=== PATIENT | female | born 1975 | race African-American/Black ===

== ENCOUNTER 2018-07-22 11:36 | Inpatient (IN) | payer BC ==
[2018-07-21 14:06] VITALS: BMI 24.2
[2018-07-22] MEDS ORDERED: MIDAZOLAM HCL 2 MG/2 ML SINGLE DOSE VIAL ONE ×2 (16:43→17:10)
[2018-07-22] MEDS ORDERED: PROPOFOL 20 ML ONE ×2 (16:43→17:08)
[2018-07-22] MEDS ORDERED: ROCURONIUM BROMIDE 50 MG/5 ML VIAL ONE (16:43)
[2018-07-22] MEDS ORDERED: fentaNYL CITRATE 250 MCG/5 ML VIAL ONE (16:43)
[2018-07-22] MEDS ORDERED: ceFAZolin SODIUM 1 GM VIAL IVPB ONE (17:00)
[2018-07-22] MEDS ORDERED: BUPIVACAINE HCL/PF (5 MG/ML) 30 ML VIAL IJ ONE ×2 (17:18→18:22)
[2018-07-22] MEDS ORDERED: DESFLURANE GAS 240 ML BOTTLE IH ONE (17:35)
[2018-07-22] MEDS ORDERED: NEOSTIGMINE METHYLSULFATE 0.5 MG/ML - 10 ML MDV ONE (18:06)
[2018-07-22] MEDS ORDERED: GLYCOPYRROLATE 0.2 MG/1 ML VIAL ONE ×2 (18:06)
[2018-07-22] MEDS ORDERED: KETOROLAC TROMETHAMINE 30 MG/1 ML VIAL ONE (18:15)
[2018-07-22] MEDS ORDERED: PROMETHAZINE HCL 25 MG/1 ML VIAL IVPUSH PRN (18:44)
[2018-07-22] MEDS ORDERED: ONDANSETRON 4 MG/2 ML VIAL IVPUSH PRN ×2 (18:44→18:49)
--- NOTE | 2018-07-22 18:44 | OP ---
Operative Note - Note: Operative Date: 07/22/18 Pre-Operative Diagnosis: Cholelithiasis, and incarcerated umbilical hernia. Operation: Laparoscopic cholecystectomy, lysis of adhesions,. and primary repair of incarcerated umbilical hernia. Findings: Gallbladder distended with two large stones in the gallbladder . Gallbladder surrounded by adhesions of omentum and stomach. Stomach pulled towards the infundibulum of the gallbladder , lysed. Falciform liganment also pulled towards the gallbladder. Small superficial laceration at the attachment of the falciform ligament controlled. Umbilical hernia of about 2 cm. diameter , repaired primarily, with 2 o prolenee. Post-Operative Diagnosis: Same as Pre-op (Calculus of gallbladder with chronic cholecystitis, adhesions of stomach and omentum to the gallbladder. Umbilical hernia with incarceration of omentuma nad fat.) Surgeon: Martín Mendoza Anesthesiologist/GUMMED TAPE PRESS OPERATOR: Trevor Baker Specimens Removed: Gallbladder , hernial sac Estimated Blood Loss (mls): 25 Operative Report Dictated: Yes
--- NOTE | 2018-07-22 18:46 | SURG ---
Surgery Kitchen Runner Note Kitchen Runner: Trevor Baker PA-C (Suzy) Date of Service: 07/22/18 Diagnosis: Cholelithiasis, and incarcerated umbilical hernia. Procedure: Laparoscopic cholecystectomy, lysis of adhesions,. and primary repair of incarcerated umbilical hernia. I was present for the entirety of the operative procedure. For further detail, please refer to operative report.
[2018-07-22] MEDS ORDERED: oxyCODONE HCL 5 MG TABLET PO PRN (18:48)
[2018-07-22] MEDS: oxyCODONE HCL 5 MG TABLET PO PRN (20:44)
[2018-07-23] MEDS: oxyCODONE HCL 5 MG TABLET PO PRN ×3 (02:14→20:05)
--- NOTE | 2018-07-23 07:39 | OP ---
DATE OF OPERATION: 07/22/2018 PREOPERATIVE DIAGNOSIS: Cholelithiasis with chronic cholecystitis and incarcerated umbilical hernia POSTOPERATIVE DIAGNOSIS: Calculi of the gallbladder with chronic cholecystitis and incarcerated umbilical hernia and postoperative adhesions of stomach and omentum around the gallbladder as well as the falciform ligament with incarceration of omentum and fat. OPERATIVE PROCEDURE: Laparoscopic cholecystectomy, lysis of adhesions, primary repair of incarcerated umbilical hernia. SURGEON: Jame Mendoza MD INTEGRATION AIDE: MORGAN Leal ANESTHESIA: General anesthesia. OPERATIVE DESCRIPTION: This 43-year-old woman has pain at the umbilicus perceived with a fairly large incarcerated umbilical hernia. She also was found to have another small ventral hernia above that. Seen fairly, she also had 2 large stones in the gallbladder. She was brought in for laparoscopic cholecystectomy and repair of incarcerated umbilical hernia. Consent was obtained. Risks, benefits, and complications were discussed with the patient. Patient was brought to the operating room. General anesthesia was administered. The abdomen painted and draped. She was given a gram of Ancef. Time-out was called. Incision was made in the infraumbilical portion of the umbilicus. It was was deepened through the skin and subcutaneous tissue. The hernia was identified, it was admitted more than 1-1/2 fingers in diameter. The skin was placed and retracted above the umbilical hernia defect circumferentially. The edges were defined and defect was identified. There was omentum incarcerated through the fat. This was completely excised, and the edges were clean. Two stay sutures of 2-0 Vicryl were obtained, and a 10-12-mm laparoscopic trocar of the Lazaro type was introduced into the abdominal cavity. The abdomen was inflated with carbon dioxide at 6L per minute with a maximum intraabdominal pressure of 15 mmHg. A 5-mm camera was introduced into the abdominal cavity. Two 5-mm trocars were inserted in the right upper quadrant of the abdomen, one around the midclavicular line, another around the anterior axillary line 2 fingerbreadths below the costal margin. These were visualized with the camera entering the abdominal cavity. A third 5-mm trocar was inserted in the midline in the subxiphoid area. This was introduced to the right of the falciform ligament. This was also visualized with the camera. The gallbladder was then visualized after lifting the right lobe of the liver. The gallbladder was surrounded by omentum, and the stomach , pylorus and duodenum were withdrawn towards the infundibulum and body of the gallbladder. With lysing of the adhesions, the fundus of the gallbladder was visualized. This was grasped with a 5-mm grasper through the lateral 5-mm port site. The gallbladder was then retracted cephalad and laterally. With sharp and blunt dissection using electrocautery, the omental adhesions as well as the stomach adhesions around the gallbladder were carefully withdrawn to visualize the infundibulum of the gallbladder and infundibulum cystic duct junction. Once the whole gallbladder was visualized with sharp and blunt dissection, the cystic duct and cystic artery were visualized circumferentially, and this was divided between clips. The peritoneal reflection on either side of the gallbladder was then incised, the gallbladder dissected out of the gallbladder bed all the way to the fundus of the gallbladder. The cholecystectomy was thus accomplished. There were a lot of adhesions of the gallbladder to the liver bed. Once this was done, it was noted that the falciform ligament was also shortened and adherent. With the mobilization of the right lobe of the liver, there was a small laceration at the entrance of the falciform ligament to the body of the liver. This was controlled with electrocautery. Two Surgicels were then introduced through the umbilicus and placed over the laceration, which was dry. The gallbladder bed was then thoroughly irrigated with normal saline. All fluid return was clear. The gallbladder was then removed by introducing an Endobag through the umbilical port and withdrawing it with 2 large stones in the gallbladder which were more than 2 cm in diameter. The specimen was sent to Pathology. The umbilical hernia defect was then cleaned, and the hernia defect was properly repaired with 2-0 Prolene sutures in a vertical mattress fashion. The umbilical skin was then brought down towards the base of the umbilical defect, and the skin was approximated with buried interrupted 4-0 Biosyn sutures. Marcaine 0.5% was injected into the wound. Estimated blood loss was about 25 mL. Patient remained stable throughout the procedure. Dermabond was applied to close the skin edges, and a sterile dressing was placed over the umbilical repair. Patient was extubated and sent to the recovery room in satisfactory and stable condition. Jovan [id number] MTDD
[2018-07-23] MEDS: DOCUSATE SODIUM 100 MG CAPSULE (FP) PO SCH (09:13)
[2018-07-23 09:58] LABS: BASO % 0.2 % (0-2.0); HEMATOCRIT 31.3 % (32.4-45.2); HEMOGLOBIN 10.4 GM/dL (10.7-15.3); LYMPH % 21.7 % (8-40); MCH 29.3 pg (25.7-33.7); MCHC 33.3 g/dl (32.0-36.0); MEAN PLT VOLUME 8.9 fl (7.5-11.1); MONO % 6.2 % (3.8-10.2); NEUT % 71.9 % (42.8-82.8); PLATELET COUNT 190 K/MM3 (134-434); RBC 3.55 M/mm3 (3.60-5.2); RDW 14.9 % (11.6-15.6); WHITE BLOOD COUNT 9.7 K/mm3 (4.0-10.0)
--- NOTE | 2018-07-23 18:31 | PN ---
Progress Note, Physician Chief Complaint: patient is c/o abdominal pain . Has no nausea, no vomiting. CBC is stable. Abdomen is soft , not tender, no distention. Has tolerated diet and has been out of bed. Patient is anxious , and refuses to go home today. She is informed that the pain is related to abdominal distenyion for surgery with CO2. Patient wants to go home tomorrow. Will admit patient for observation , Abdominal pain , post laparoscopic cholecystectomy. Repeat CBC , CMP tomorrow am. - Current Medication List Current Medications: Active Medications Docusate Sodium (Colace -) 100 mg PO DAILY CANDIDO Last Admin: 07/23/18 09:13 Dose: 100 mg Ondansetron HCl (Zofran Injection) 4 mg IVPUSH Q6H PRN PRN Reason: NAUSEA AND/OR VOMITING Oxycodone HCl (Roxicodone -) 10 mg PO Q4H PRN PRN Reason: PAIN LEVEL 6-10 Last Admin: 07/23/18 09:13 Dose: 10 mg Oxycodone HCl (Roxicodone -) 5 mg PO Q4H PRN PRN Reason: PAIN LEVEL 1-5 Last Admin: 07/23/18 15:16 Dose: 5 mg Simethicone (Mylicon -) 80 mg PO Q4H PRN PRN Reason: GAS - Objective Vital Signs: Vital Signs Temperature 98.8 F 07/23/18 15:18 Pulse Rate 61 07/23/18 15:18 Respiratory Rate 18 07/23/18 10:00 Blood Pressure 107/66 07/23/18 15:18 O2 Sat by Pulse Oximetry (%) 98 07/22/18 22:00 Labs: CBC, BMP 07/23/18 07:30
[2018-07-23] MEDS: SIMETHICONE 80 MG TAB.CHEW (FP) PO PRN (22:29)
[2018-07-24] MEDS: oxyCODONE HCL 5 MG TABLET PO PRN (02:02)
[2018-07-24] MEDS: SIMETHICONE 80 MG TAB.CHEW (FP) PO PRN (06:08)
--- NOTE | 2018-07-24 07:36 | PN ---
Progress Note, Physician Chief Complaint: s/p lap valorie under general anesthesia History of Present Illness: post op day one - Current Medication List Current Medications: Active Medications Docusate Sodium (Colace -) 100 mg PO DAILY CANDIDO Last Admin: 07/23/18 09:13 Dose: 100 mg Ondansetron HCl (Zofran Injection) 4 mg IVPUSH Q6H PRN PRN Reason: NAUSEA AND/OR VOMITING Oxycodone HCl (Roxicodone -) 10 mg PO Q4H PRN PRN Reason: PAIN LEVEL 6-10 Last Admin: 07/24/18 02:02 Dose: 10 mg Oxycodone HCl (Roxicodone -) 5 mg PO Q4H PRN PRN Reason: PAIN LEVEL 1-5 Last Admin: 07/23/18 15:16 Dose: 5 mg Simethicone (Mylicon -) 80 mg PO Q4H PRN PRN Reason: GAS Last Admin: 07/24/18 06:08 Dose: 80 mg - Objective Vital Signs: Vital Signs Temperature 99.3 F 07/24/18 02:45 Pulse Rate 68 07/24/18 02:45 Respiratory Rate 18 07/24/18 02:45 Blood Pressure 132/76 07/24/18 02:45 O2 Sat by Pulse Oximetry (%) 98 07/23/18 21:00 Constitutional: Yes: Well Nourished Cardiovascular: Yes: WNL Respiratory: Yes: WNL Gastrointestinal: Yes: WNL Labs: CBC, BMP 07/23/18 07:30 Assessment/Plan no adverse effect of anesthetic. dept of anesthesiology will sign off care at this time
[2018-07-24 08:29] LABS: HEMATOCRIT 32.4 % (32.4-45.2); HEMOGLOBIN 10.6 GM/dL (10.7-15.3); MCH 28.6 pg (25.7-33.7); MCHC 32.7 g/dl (32.0-36.0); MEAN CELL VOLUME 87.4 fl (80-96); MEAN PLT VOLUME 8.6 fl (7.5-11.1); PLATELET COUNT 163 K/MM3 (134-434); RBC 3.71 M/mm3 (3.60-5.2); RDW 14.8 % (11.6-15.6); WHITE BLOOD COUNT 7.5 K/mm3 (4.0-10.0)
[2018-07-24 09:04] LABS: ALBUMIN 3.3 g/dl (3.4-5.0); ALK PHOS 52 U/L (45-117); ANION GAP 7 MMOL/L (8-16); BLOOD UREA NITROGEN 8 mg/dL (7-18); CALCIUM 8.3 mg/dL (8.5-10.1); CHLORIDE 105 mmol/L (98-107); CO2 25 mmol/L (21-32); CREATININE 0.8 mg/dL (0.55-1.3); GLUCOSE,RANDOM 78 mg/dL (74-106); POTASSIUM 3.7 mmol/L (3.5-5.1); SGOT/AST 28 U/L (15-37); SGPT/ALT 30 U/L (13-61); SODIUM 137 mmol/L (136-145); TOT PROT 6.4 g/dl (6.4-8.2)
--- NOTE | 2018-07-24 10:14 | PN ---
Progress Note, Physician - Current Medication List Current Medications: Active Medications Docusate Sodium (Colace -) 100 mg PO DAILY CANDIDO Last Admin: 07/23/18 09:13 Dose: 100 mg Ondansetron HCl (Zofran Injection) 4 mg IVPUSH Q6H PRN PRN Reason: NAUSEA AND/OR VOMITING Oxycodone HCl (Roxicodone -) 10 mg PO Q4H PRN PRN Reason: PAIN LEVEL 6-10 Last Admin: 07/24/18 02:02 Dose: 10 mg Oxycodone HCl (Roxicodone -) 5 mg PO Q4H PRN PRN Reason: PAIN LEVEL 1-5 Last Admin: 07/23/18 15:16 Dose: 5 mg Simethicone (Mylicon -) 80 mg PO Q4H PRN PRN Reason: GAS Last Admin: 07/24/18 06:08 Dose: 80 mg - Objective Vital Signs: Vital Signs Temperature 99 F 07/24/18 06:00 Pulse Rate 68 07/24/18 06:00 Respiratory Rate 18 07/24/18 06:00 Blood Pressure 128/79 07/24/18 06:00 O2 Sat by Pulse Oximetry (%) 98 07/23/18 21:00 Labs: CBC, BMP 07/24/18 07:00 07/24/18 07:00 Assessment/Plan Patient is afebrile, has no abdominal pain. Labs : Normal. Plan : Discharge home, follow up in my office on August 01, 2018, at 4.30pm. Prescription of pain medication. Diagnosis: 1) Calculus of gallbladder with cholecystitis , with adhesions of stomach and duodenum, 2) Postopeartive abdominal pain , secondary to abdominal infaltion with CO2, improved..
[2018-07-24] MEDS: DOCUSATE SODIUM 100 MG CAPSULE (FP) PO SCH (10:36)
[2018-07-24 12:11] VITALS: BP 112/48; PULSE 80; TEMP 98.3
--- NOTE | 2018-07-26 16:24 | PATH ---
Surgical Pathology Report Patient Name: CARIE MACK Med. Rec. #: [id number] /Age/Gender: 1975 (Age: 43) / F Account: [id number] Location: [address] [place] [address] Taken: 07/22/2018 Received: 07/25/2018 Reported: 07/26/2018 Physicians: Jame Mendoza M.D. Specimen(s) Received A: UMBILICAL HERNIA SAC B: GALLBLADDER Clinical History Calculus of gallbladder, umbilical hernia Final Diagnosis A. UMBILICAL HERNIA SAC, REPAIR OF INCARCERATED HERNIA: FIBROMEMBRANOUS AND ADIPOSE TISSUE COMPATIBLE WITH HERNIA SAC. B. GALLBLADDER, LAPAROSCOPIC CHOLECYSTECTOMY: CHRONIC CHOLECYSTITIS WITH CHOLELITHIASIS. Electronically Signed Maegan Muñiz M.D. Gross Description A. Received in formalin labeled "umbilical hernia sac," are 2 narayanan-yellow portions of fibromembranous tissue with attached fat measuring 1.5 x 0.8 x 0.4 cm and 1.7 x 1.2 x 0.6 cm. The specimens are bisected and entirely submitted in one cassette. B. Received in formalin, labeled "gallbladder," is a 7.5 x 3.0 x 3.0 cm. gallbladder with a 0.2 cm. in length portion of cystic duct attached. The outer surface is narayanan green and varies from smooth to shaggy. The lumen contains green, tenacious bile as well as 2 choleliths averaging 2.0 cm in greatest dimension. The mucosa is green with focal erosions. The wall of the gallbladder ranges from 0.1-0.2 cm. in thickness. Spray Ii Painter sections are submitted in one cassette. /07/25/201807/25/2018
== END 2018-07-24 14:25 | disposition home or self-care (01) | DRG 406 ==
LOC: JASU-SURG 11:36 → J6S 20:27 → JASU-SURG 07-23 18:31 → J6S 07-23 18:31
PROVIDERS: ADMIT Specialist; ATTEND Specialist
PROC: 0WQF4ZZ Repair Abdominal Wall, Percutaneous Endoscopic Approach (ICD-10-PCS; 2018-07-22)
PROC: 0DNU4ZZ Release Omentum, Percutaneous Endoscopic Approach (ICD-10-PCS; 2018-07-22)
PROC: 3E0M45Z Introduction of Adhesion Barrier into Peritoneal Cavity, Percutaneous Endoscopic Approach (ICD-10-PCS; 2018-07-22)
PROC: 0FQ Hepatobiliary System and Pancreas, Repair (ICD-10-PCS; principal; 2018-07-22 12:30)
PROC: 0FT44ZZ Resection of Gallbladder, Percutaneous Endoscopic Approach (ICD-10-PCS; 2018-07-22 12:30)
DX: K80.10 Calculus of gallbladder with chronic cholecystitis without obstruction (principal); K42.0 Umbilical hernia with obstruction, without gangrene; S36.114A Minor laceration of liver, initial encounter; K66.0 Peritoneal adhesions (postprocedural) (postinfection); G89.18 Other acute postprocedural pain; R10.9 Unspecified abdominal pain; K43.9 Ventral hernia without obstruction or gangrene; Y84.8 Other medical procedures as the cause of abnormal reaction of the patient, or of later complication, without mention of misadventure at the time of the procedure; Y92.234 Operating room of hospital as the place of occurrence of the external cause; Y93.89 Activity, other specified; Y99.8 Other external cause status
CPT/HCPCS: 36415; 80053; 84703; 85025; 85027; 88302-TC; 88304-TC; 94760